=== PATIENT | male | born 1985 | race African-American/Black ===

== ENCOUNTER 2018-04-19 23:03 | Emergency (ER) | payer MEDICAID ==
[~2018-04-19] VITALS: Ht 185.4 cm; Wt 62.6 kg
[2018-04-20 03:55] VITALS: BP 124/85
== END 2018-04-20 03:57 | disposition home or self-care (01) ==
LOC: ER 23:06
DX: J40 Bronchitis, not specified as acute or chronic (principal); M41.9 Scoliosis, unspecified; Z98.890 Other specified postprocedural states
CPT/HCPCS: 71045; 99283